=== PATIENT | female | born 1970 | race Caucasian/White ===

== ENCOUNTER → 2016-11-23 | Outpatient (CLI) | payer BC ==
--- NOTE | 2016-11-23 11:26 | MA ---
Screening Digital Mammogram With Tomosynthesis Clinical Indications: Routine screening. Mother with breast cancer at 58. Technique: Standard digital cephalocaudal and tomosynthesis mediolateral oblique projections were ob tained. The digital images were processed by the [employer] computer aided detection system. Comparison: April 2011, September 2013, October 2014, October 2015. Breast density: D; The breast tissue is extremely dense. This may lower the sensitivity of mammograph y. Findings: CAD was reviewed. No suspicious findings are identified. Impression: Negative mammogram. BI-RADS 1. Recommendation: Routine screening is recommended in one year, as long as physical examination is damian ign in this patient with extremely dense breast parenchyma. [facility] will send a result letter to the patient. Negative mammography should not preclude additional workup of a clinically suspicious finding. The patient's information is entered into a reminder system with a target due date for her next mammo gram.
== END ==
LOC: FIMAGING 08:09
DX: Z12.31 Encounter for screening mammogram for malignant neoplasm of breast (principal); Z80.3 Family history of malignant neoplasm of breast
CPT/HCPCS: G0202

== ENCOUNTER → 2017-01-10 | Outpatient (CLI) | payer BC | LOC: FIMAGING 08:59 | PROVIDERS: ATTEND Internal Medicine Endocrinology, Diabetes & Metabolism | DX: Z13.820 Encounter for screening for osteoporosis (principal); M85.80 Other specified disorders of bone density and structure, unspecified site ==

== ENCOUNTER 2017-09-05 20:28 | Emergency (ER) | payer BC ==
--- NOTE | 2017-09-05 22:07 | EDPHY ---
H & P Smoking Status: Never smoked Time Seen by Provider: 09/05/17 20:53 HPI/ROS: CHIEF COMPLAINT: Left knee laceration HISTORY OF PRESENT ILLNESS: 46-year-old female presents to the emergency department with a laceration to her left knee. The patient was running and tripped and fell hitting her left knee on the ground. She did not hit her head or lose consciousness. Patient states that he got up and then continued to run an additional 3 miles. She states she came home and then clean the wound out really well and then when her looked at the wound he brought her to the emergency department for evaluation. She believes her tetanus shot is current. ROS: She denies numbness or tingling in her toes, pain in her left ankle or hip. (Martha Goel) Past Medical/Surgical History: Hypothyroidism, Raynaud's, gastric ulcers (Martha Goel) Social History: and lives in [place] (Martha Goel) Physical Exam: On examination, the patient has a 3 cm flap laceration to the left anterior aspect of her knee overlying the lateral aspect of the patella. There is no effusion noted. Patellar apprehension sign is negative. No palpable bony tenderness. Full range of motion of the left knee. Calf is nontender. No evidence of retained foreign body. (Martha Goel) Constitutional: Initial Vital Signs Heart Rate 69 09/05/17 20:31 Respiratory Rate 18 09/05/17 20:31 Blood Pressure 94/72 L 09/05/17 20:31 O2 Sat (%) 99 09/05/17 20:31 O2 Delivery Mode Room Air Allergies/Adverse Reactions: thimerosal Allergy (Verified 09/05/17 20:30) fluoroquinolones Allergy (Uncoded 09/05/17 20:30) Home Medications: Medication Instructions Recorded ARMOUR THYROID 09/15/16 AZOPT 1% (RX) 09/05/17 Lumigan 0.01% (*) 09/05/17 Ortho Tri-Cyclen Lo Tablet 09/05/17 Timolol 09/05/17 MDM/Departure - MDM Procedures: Laceration repair. Verbal consent was obtained from the patient. The 3 cm flap laceration on the left knee was anesthetized using 1% lidocaine without epinephrine. The wound was irrigated with saline, draped and explored to its base with a gloved finger. There were no deep structures involved. No tendon injury was identified. The wound was repaired with 4 0 Ethilon, 4 sutures. The wound repair was simple. The procedure was performed by myself. (Martha Goel) ED Course/Re-evaluation: 46-year-old female presents with left knee laceration. The incident happened this afternoon approximately 6 hours ago. The wound appears clean and does not appear to extend into her joint space. The I did discuss with her the pros and cons of repairing the wound and the risk of infection associated with this. The wound was thoroughly irrigated. The wound was closed, see procedure note. The patient believes her tetanus shot is current. I did encourage her to call her primary care provider tomorrow to make sure her tetanus shot was current. Patient was given wound care precautions. (Martha Goel) The patient was evaluated and managed by the physician resident assistant cna. I have reviewed this chart and I agree with the findings and plan of care as documented , as indicated by my signature. I am the secondary supervising physician. ( Sheila Wooten) - Depart Disposition: Home, Routine, Self-Care Clinical Impression: Laceration of left knee Qualifiers: Encounter type: initial encounter Qualified Code(s): S81.012A - Laceration without foreign body, left knee, initial encounter Condition: Good Instructions: Care For Your Stitches (ED), Laceration (ED), Acute Wounds (ED) Additional Instructions: Wound Care Follow-Up: Removal of sutures in 10 days. Suture removal is complimentary in uncomplicated cases. Infection or abnormal findings would require reevaluation by the MD. In that case, you may be billed. Tylenol 1000 mg every 4-6 hours as needed for pain. Activity as tolerated. Any open water such as swimming pools or hot tubs until sutures have been removed. Return to the emergency department if you develop any signs or symptoms of infection such as redness, swelling, increased pain, fever, purulent drainage. Referrals: Jim Arambula MD [Primary Care Provider] - As per Instructions
[2017-09-05 22:15] VITALS: BP 102/66; PULSE 63; RESP 16; TEMP 97.5; O2SAT 97
== END 2017-09-05 22:14 | disposition home or self-care (01) ==
PROC: 0HQLXZZ Repair Left Lower Leg Skin, External Approach (ICD-10-PCS; principal; 2017-09-05)
DX: S81.012A Laceration without foreign body, left knee, initial encounter (principal); W01.198A Fall on same level from slipping, tripping and stumbling with subsequent striking against other object, initial encounter; Y99.8 Other external cause status